=== PATIENT | female | born 1990 | race Caucasian/White ===

== ENCOUNTER 2016-08-01 13:15 | Emergency (ER) | payer SELFPAY ==
[~2016-08-01] VITALS: Ht 157.5 cm; Wt 68.0 kg
[2016-08-01 16:55] VITALS: BP 116/64
[2016-08-04 04:12] LABS: RAPID PLASMA REAGIN Non Reactive (Non Reactive)
== END 2016-08-01 16:35 | disposition home or self-care (01) ==
LOC: ED 13:15
PROVIDERS: Emergency Medicine
DX: Z20.818 Contact with and (suspected) exposure to other bacterial communicable diseases (principal); H01.005 Unspecified blepharitis left lower eyelid
CPT/HCPCS: 87491; 87591; J0696; J1885

== ENCOUNTER 2018-05-06 19:51 | Emergency (ER) | payer OTHER ==
[~2018-05-06] VITALS: Ht 157.5 cm; Wt 71.2 kg
[2018-05-06 19:55] VITALS: Ht 157.5 cm; Wt 71.2 kg
[2018-05-06 21:45] VITALS: BP 143/103
== END 2018-05-06 21:45 | disposition home or self-care (01) ==
LOC: ED 19:51
DX: H60.91 Unspecified otitis externa, right ear (principal)
CPT/HCPCS: J1885